=== PATIENT | male | born 1955 | race Caucasian/White ===

== ENCOUNTER 2022-02-11 20:12 | Emergency (ER) | payer OTHER ==
[2022-02-11] MEDS ORDERED: Sodium Chloride 0.9% 10 ML Syringe FLUSH PRN ×2 (20:15→20:22)
[2022-02-11] MEDS ORDERED: Iopamidol 612 MG/ML 100 ML Bottle IVPUSH ONE (20:22)
[2022-02-11] MEDS ORDERED: Iopamidol 612 MG/ML 50 ML SDV IVPUSH ONE (20:22)
[2022-02-11] MEDS ORDERED: HYDROmorphone 0.5 MG/0.5 ML Syringe IVPUSH ONE ×2 (20:25→21:14)
[2022-02-11] MEDS ORDERED: Lidocaine 1% 20 ML MDV INJECT ONE (21:39)
[2022-02-11] MEDS ORDERED: fentaNYL 100 MCG/2 ML SDV IVPUSH ONE (21:53)
[2022-02-11] MEDS ORDERED: Midazolam 1 MG/ML 2 ML SDV IVPUSH ONE (21:53)
[2022-02-11] MEDS ORDERED: Iopamidol 755 Mg/ML 100 ML Bottle IVPUSH ONE ×2 (21:55→21:56)
[2022-02-11] MEDS ORDERED: Lidocaine 1% 10 ML MDV ONE (21:57)
[2022-02-11] MEDS ORDERED: Sodium Chloride 0.9% 100 ML IV SCH ×2 (22:00)
== END 2022-02-11 23:25 ==
LOC: JD.ED 20:12
DX: S22.42XA Multiple fractures of ribs, left side, initial encounter for closed fracture (principal); S22.069A Unspecified fracture of T7-T8 vertebra, initial encounter for closed fracture; S42.102A Fracture of unspecified part of scapula, left shoulder, initial encounter for closed fracture; S12.491A Other nondisplaced fracture of fifth cervical vertebra, initial encounter for closed fracture; S27.321A Contusion of lung, unilateral, initial encounter; S30.0XXA Contusion of lower back and pelvis, initial encounter; S27.0XXA Traumatic pneumothorax, initial encounter; V29.9XXA Motorcycle rider (driver) (passenger) injured in unspecified traffic accident, initial encounter; Y92.410 Unspecified street and highway as the place of occurrence of the external cause
CPT/HCPCS: 32555; 36415; 70450; 70498; 71045; 71260; 72125; 74177; 80053; 80307; 83690; 85025; 96374; 96375; 99285; J1170; J2250; J3010; J3490; Q9967; 32551